=== PATIENT | female | born 2000 | race Hispanic/Latino ===

== ENCOUNTER 2024-05-03 02:55 | Day surgery (SDC) | payer OTHER ==
[2024-05-03 03:14] VITALS: BMI 32.1
[2024-05-03] MEDS ORDERED: hydrALAZINE 20 MG/ML VIAL SLOW IVP PRN (03:17)
[2024-05-03 04:21] LABS: Bilirubin Neg (Negative); Blood, Urine Negative (Negative); Clarity Clear (Clear); Glucose, Urine (Dipstick) Normal (Negative); Ketone, Urine Negative (Negative); Leukocyte Negative (Negative); Nitrite Negative (Negative); Protein, Urine (Dipstick) Negative (Neg-Trace); Urobilinogen Normal mg/dL (Less than 2)
[2024-05-03] MEDS: Acetaminophen 500 MG TAB PO SCH (04:41)
[2024-05-03 04:55] LABS: Bacteria/HPF 1+ HPF (None Seen); CAUTI Indications for Culture Pregnancy; RBC/HPF None Seen HPF (0-3); Squamous Epithelial 0-3 HPF (0-3); Urine Culture Reflex No No; Urine Culture Reflex Yes Yes; WBC/HPF 0-3 HPF (0-3)
[2024-05-03] MEDS: metroNIDAZOLE 500 MG TAB PO SCH (06:00)
[2024-05-03] MEDS: Fluconazole 100 MG TAB PO SCH (06:00)
== END 2024-05-03 06:22 | disposition home or self-care (01) ==
LOC: CSHLD/OP 02:55
PROVIDERS: ATTEND Family Medicine
DX: O99.891 Other specified diseases and conditions complicating pregnancy (principal); R10.30 Lower abdominal pain, unspecified; Z3A.31 31 weeks gestation of pregnancy; Z88.1 Allergy status to other antibiotic agents
CPT/HCPCS: 81001; 87086; 87480; 87510; 87660; 99284

== ENCOUNTER 2024-05-23 15:24 | Observation (INO) | payer OTHER ==
[2024-05-23 16:04] VITALS: BMI 32.5
[2024-05-23] MEDS ORDERED: hydrALAZINE 20 MG/ML VIAL SLOW IVP PRN (17:51)
[2024-05-23 18:37] LABS: FFN Internal QC Analyzer PASS (PASS); FFN Internal QC Cassette PASS (PASS); Fetal Fibronectin POSITIVE (Negative)
[2024-05-23 19:07] LABS: Bilirubin Neg (Negative); Blood, Urine Negative (Negative); Clarity Slightly Cloudy (Clear); Glucose, Urine (Dipstick) Normal (Negative); Ketone, Urine 50 mg/dL (Negative); Leukocyte 25 (Negative); Nitrite Negative (Negative); Protein, Urine (Dipstick) 15 mg/dl (Neg-Trace)
[2024-05-23 19:15] LABS: CAUTI Indications for Culture Pregnancy; Mucous/LPF 1+ LPF (<2+)
[2024-05-23 19:16] LABS: Bacteria/HPF 2+ HPF (None Seen); RBC/HPF 0-3 HPF (0-3)
[2024-05-23 19:17] LABS: Urine Culture Reflex Yes Yes
[2024-05-23] MEDS: cefTRIAXone\\ROCEPHIN 1 GM in Sodium Chloride 0.9% 100 ML IVPB SCH (20:36)
[2024-05-23] MEDS: Lactated Ringer's 1,000 ML IV SCH (20:39)
== END 2024-05-24 09:30 | disposition home health service (06) ==
LOC: CSHLD/OP 15:24 → CSHLD 19:43 → INTOOBSV 19:43
PROVIDERS: ADMIT Family Medicine; ATTEND Family Medicine
DX: O99.891 Other specified diseases and conditions complicating pregnancy (principal); R10.30 Lower abdominal pain, unspecified; Z3A.33 33 weeks gestation of pregnancy; Z88.8 Allergy status to other drugs, medicaments and biological substances; Z79.899 Other long term (current) drug therapy
CPT/HCPCS: 81001; 82731; 87077; 87086; 87480; 87510; 87660; 99285; J0696; J7120